=== PATIENT | male | born 1940 | race Caucasian/White ===

== ENCOUNTER 2017-10-12 05:13 | Day surgery (SDC) | payer OTHER ==
[2017-10-12] MEDS ORDERED: LIDOCAINE 1% 2 ML INJ ONE (05:45)
[2017-10-12] MEDS ORDERED: ceFAZolin 2 GM/SWFI 2 GM/20 ML SYR IVP ONE (05:49)
[2017-10-12] MEDS ORDERED: LR 1,000 ML IV ONE (05:50)
[2017-10-12] MEDS ORDERED: NS 500 ML IV ONE (06:28)
[2017-10-12] MEDS ORDERED: THROMBIN (BOVINE) 20,000 UNIT SPRAY TP ONE (07:02)
[2017-10-12] MEDS ORDERED: PROTAMINE SULFATE 50 MG/5 ML VIAL IVP ONE (07:02)
[2017-10-12] MEDS ORDERED: PAPAVERINE HCL 60 MG/2 ML SDV ONE (07:02)
[2017-10-12] MEDS ORDERED: THROMBIN (BOVINE) 5,000 UNIT VIAL TP ONE (07:02)
[2017-10-12] MEDS ORDERED: BUPIVACAINE 0.5% 30 ML SDV ONE (07:02)
--- NOTE | 2017-10-12 07:03 | PDHPUP ---
History & Physical Update H&P update statement: This history and physical update is based on an assessment of the patient which was completed after admission or registration (within 24 hours), but prior to the surgery/procedure. H&P update: H&P reviewed & patient examined, no change in patient's condition since H&P completed
[2017-10-12] MEDS ORDERED: MIDAZOLAM 2 MG/2 ML VIAL IVP ONE (07:05)
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
[2017-10-12] MEDS ORDERED: PROPOFOL/EMULSION 500 MG/50 ML BOTTLE IV ONE ×2 (07:11→08:13)
[2017-10-12 07:13] LABS: PLATELET COUNT 284 10^3/uL (150-400)
[2017-10-12] MEDS ORDERED: ONDANSETRON 4 MG/2 ML VIAL ONE (07:13)
[2017-10-12] MEDS ORDERED: RANITIDINE 50 MG/2 ML VIAL ONE (07:15)
[2017-10-12] MEDS ORDERED: fentaNYL 100 MCG/2 ML INJ ONE (07:17)
[2017-10-12] MEDS ORDERED: HEPARIN 10,000 UNIT/10 ML MDV (1,000 UNIT/ML) ONE (08:05)
--- NOTE | 2017-10-12 09:00 | POSTOPPROG ---
Post Op Note Date of Operation: 10/12/17 Surgeon: Kamar Hills Contact Center Representative: Moody Anesthesiologist: Catrachita Anesthesia: GET(General Endotracheal) Pre-op Diagnosis: Renal failure Post-op Diagnosis: same Indication: same Procedure: Radial-cephalic AVF Findings: Calcified radial artery Inf/Abcess present in the surg proc area at time of surgery?: No EBL: Minimal
[2017-10-12] MEDS ORDERED: fentaNYL 100 MCG/2 ML INJ IVP PRN (09:02)
[2017-10-12] MEDS ORDERED: ACETAMINOPHEN 500 MG TAB PO PRN (09:02)
[2017-10-12] MEDS ORDERED: HYDROmorphONE/DILAUDID 1 MG/ML INJ IVP PRN (09:02)
[2017-10-12] MEDS ORDERED: ALBUTEROL 3 ML DEYVIAL IH PRN (09:02)
[2017-10-12] MEDS ORDERED: ONDANSETRON 4 MG/2 ML VIAL IVP PRN (09:02)
[2017-10-12] MEDS ORDERED: HYDROCODONE/APAP 5/325 TAB PO PRN (09:02)
[2017-10-12] MEDS ORDERED: NALOXONE HCL 0.4 MG/ML INJ IVP PRN (09:02)
[2017-10-12] MEDS ORDERED: oxyCODONE IR 5 MG TAB PO PRN (09:02)
--- NOTE | 2017-10-12 09:02 | POSTANESTH ---
Post Anesthetic Evaluation Cardiovascular Status: Normal, Stable Respiratory Status: Normal, Stable Level of Consciousness/Mental Status: Alert and Oriented Pain Control: Adequate, Prn Tx Ordered Nausea/Vomiting Control: Adequate, Prn Tx Ordered Complications Possibly Related to Anesthesia: None Noted
[2017-10-12 10:01] VITALS: PULSE 51; RESP 17
[2017-10-12 10:06] VITALS: TEMP 97.9
[2017-10-12 11:01] VITALS: BP 157/56; O2SAT 96
--- NOTE | 2017-10-15 06:07 | GOP ---
[f rep st] OPERATIVE REPORT DATE OF OPERATION: 10/12/2017 SURGEON: Kamar Hills MD FIREFIGHTER TYPE ONE: Luanne Uriostegui, nurse practitioner. ANESTHESIOLOGIST: Wilbert Domínguez DO. PREOPERATIVE DIAGNOSIS: Chronic renal failure. POSTOPERATIVE DIAGNOSIS: Chronic renal failure. PROCEDURE PERFORMED: 1. Left arm ultrasound vein mapping. 2. Left radiocephalic arteriovenous fistula. FINDINGS: The patient was found to have a calcified radial artery, but an adequate cephalic vein. DESCRIPTION OF PROCEDURE: The patient was taken to the operating room where he received a satisfacto ry general endotracheal anesthesia by Dr. Domínguez. He was placed in supine position with the left arm outstretched on an arm board, prepped and draped in usual sterile fashion. Ultrasound was used to ma p the veins of the left arm. The patient had an excellent cephalic vein both above and below the ant ecubital space. His radial artery appeared to have some calcification, but an excellent pulse and an adequate size. It was elected to proceed with a radiocephalic AV fistula. Incision was made over t he radial artery at the wrist, and the radial artery was dissected free, encircled with vessel loops. The cephalic vein was then mobilized. A separate incision was made because of the distance between the cephalic vein and the radial artery. This was freed up and ligated distally with a 3-0 silk tie . The vein was then transposed over to the radial artery subcutaneously. An end-to-side anastomosis was made between the cephalic vein and the radial artery. An 8 mm anastomosis was made with a runni ng 6-0 Prolene suture. Flow was first established through the fistula and then back down the hand. He had excellent flow in the fistula tract as well as preserved flow to the hand. The wound was infi ltrated with 0.5% Marcaine and closed with 3-0 Vicryl for the subcu and a 4-0 Monocryl subcuticular s titch for the skin. There were no complications. He tolerated the procedure well. He was taken to the recovery room in good condition. /[id number]/MODL
== END 2017-10-12 11:10 | disposition home or self-care (01) ==
LOC: FSGY 05:13
PROVIDERS: ATTEND Surgery
PROC: 03180ZD Bypass Left Brachial Artery to Upper Arm Vein, Open Approach (ICD-10-PCS; principal; 2017-10-12 07:15)
DX: N18.6 End stage renal disease (principal); I12.0 Hypertensive chronic kidney disease with stage 5 chronic kidney disease or end stage renal disease; E11.22 Type 2 diabetes mellitus with diabetic chronic kidney disease; E78.5 Hyperlipidemia, unspecified; Z87.891 Personal history of nicotine dependence
CPT/HCPCS: J0690; J1644; J2250; J2405; J2440; J2704; J2720; J2780; J3010

== ENCOUNTER 2017-12-11 06:50 | Day surgery (SDC) | payer OTHER ==
[2017-12-11] MEDS ORDERED: ceFAZolin 2 GM/SWFI 2 GM/20 ML SYR IVP ONE (07:20)
--- NOTE | 2017-12-11 07:39 | CPEKG ---
Heart Rate: 59 RR Interval: 1017 P-R Interval: 268 QRSD Interval: 104 QT Interval: 492 QTC Interval: 488 P [place]: 63 QRS [place]: 0 T Wave [place]: 88 EKG Severity - ABNORMAL ECG - EKG Impression: SINUS RHYTHM EKG Impression: FIRST DEGREE AV BLOCK EKG Impression: LOW VOLTAGE IN FRONTAL LEADS EKG Impression: PROBABLE LVH WITH SECONDARY REPOL ABNRM EKG Impression: BORDERLINE PROLONGED QT INTERVAL Electronically Signed By: Jd Castro 11-Dec-2017 13:24:20
[2017-12-11] MEDS ORDERED: NS 1,000 ML IV ONE (08:00)
[2017-12-11 08:01] LABS: PLATELET COUNT 249 10^3/uL (150-400)
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
[2017-12-11] MEDS ORDERED: BUPIVACAINE 0.5% 30 ML SDV ONE (09:00)
[2017-12-11] MEDS ORDERED: PROPOFOL 200 MG/20 ML VIAL ONE (09:06)
[2017-12-11] MEDS ORDERED: fentaNYL 100 MCG/2 ML INJ ONE (09:06)
[2017-12-11] MEDS ORDERED: NALOXONE HCL 0.4 MG/ML INJ IVP PRN (09:21)
[2017-12-11] MEDS ORDERED: HYDROmorphONE/DILAUDID 2 MG/ML INJ IVP PRN (09:21)
[2017-12-11] MEDS ORDERED: PROMETHAZINE HCL 25 MG/ML INJ IVP PRN (09:21)
[2017-12-11] MEDS ORDERED: HYDROCODONE/APAP 5/325 TAB PO PRN (09:21)
[2017-12-11] MEDS ORDERED: ONDANSETRON 4 MG/2 ML VIAL IVP PRN (09:21)
[2017-12-11] MEDS ORDERED: fentaNYL 100 MCG/2 ML INJ IVP PRN (09:21)
--- NOTE | 2017-12-11 10:14 | POSTANESTH ---
Post Anesthetic Evaluation Cardiovascular Status: Normal, Stable Respiratory Status: Normal, Stable Level of Consciousness/Mental Status: Can Participate in Eval Pain Control: Adequate, Prn Tx Ordered Nausea/Vomiting Control: Adequate, Prn Tx Ordered Complications Possibly Related to Anesthesia: None Noted
--- NOTE | 2017-12-11 10:17 | POSTOPPROG ---
Post Op Note Date of Operation: 12/11/17 Surgeon: Kamar [facility] Social Worker: Moody Anesthesiologist: Katherine Anesthesia: GET(General Endotracheal) Pre-op Diagnosis: Chronic renal failure Post-op Diagnosis: same Indication: same Procedure: LUE AVF revision. Ligation of three collateral vessels. Inf/Abcess present in the surg proc area at time of surgery?: No Depth: Superfical (Skin SQ) EBL: Minimal
[2017-12-11 11:36] VITALS: BP 172/70
--- NOTE | 2017-12-12 15:50 | GOP ---
[f rep st] OPERATIVE REPORT DATE OF OPERATION: 12/11/2017 SURGEON: Kamar Hills MD PREOPERATIVE DIAGNOSIS: Chronic renal failure and arteriovenous fistula collaterals. POSTOPERATIVE DIAGNOSIS: Chronic renal failure and arteriovenous fistula collaterals. PROCEDURE PERFORMED: Ultrasound vein mapping and revision of arteriovenous fistula with ligation of collaterals. FINDINGS: The patient was found to have 3 separate collaterals which were draining off the AV fistul a into a parallel vein which was stealing some flow from the main AV fistula tract. DESCRIPTION OF PROCEDURE: The patient was taken to the operating room and received satisfactory IV s edation, monitored anesthesia care. He was placed in supine position with the left arm outstretched on an arm board, prepped and draped in the usual sterile fashion. Using ultrasound guidance, the vei ns of the left forearm were mapped. Several tributary veins were identified. Short incisions were m jeana over all 3 spots using 1% Xylocaine local infiltration. Dissection extended down to the collater al communicating veins, and these were encircled and ligated with 2-0 silk ties and/or hemoclips. Af ter all 3 were done and eventually eliminated the flow in the collateral vein, it did indeed increase flow in the main body of the AV fistula. Hemostasis was obtained. Wound was infiltrated with 0.5% Marcaine and then closed with 4-0 Monocryl subcuticular stitches for the skin. There were no complic ations. He was taken to the recovery room in good condition. /[id number]/MODL
== END 2017-12-11 11:35 | disposition home or self-care (01) ==
LOC: FSGY 06:50
PROVIDERS: ATTEND Surgery
PROC: 05LY0CZ Occlusion of Upper Vein with Extraluminal Device, Open Approach (ICD-10-PCS; principal; 2017-12-11 08:30)
DX: I87.8 Other specified disorders of veins (principal); E11.22 Type 2 diabetes mellitus with diabetic chronic kidney disease; I12.0 Hypertensive chronic kidney disease with stage 5 chronic kidney disease or end stage renal disease; N18.6 End stage renal disease; Z99.2 Dependence on renal dialysis; G47.33 Obstructive sleep apnea (adult) (pediatric)
CPT/HCPCS: J0690; J1644; J2704; J3010

== ENCOUNTER → 2018-04-17 | Outpatient (CLI) | payer OTHER | LOC: FCPNEURO 20:00 | PROVIDERS: ATTEND Psychiatry & Neurology Sleep Medicine | DX: G47.33 Obstructive sleep apnea (adult) (pediatric) (principal); G47.31 Primary central sleep apnea; G47.61 Periodic limb movement disorder ==